=== PATIENT | male | born 1950 | race African-American/Black ===

== ENCOUNTER → 2021-02-27 | Outpatient (CLI) | payer MEDICARE ==
[2020-05-19 11:01] VITALS: BP 180/95
[~2021-02-27] MED LIST: ALBU2.5V8 IH; AMLO-187 PO; AMLO2.5T2 PO; ASPI-630 PO; BUDE10.2 IH; CONTRAST GIVEN. MC PRN; FLUT9.9S NS; HYDR12.58 PO; IOHEXOL 300 MG/ML 100ML VIAL. IV ONE; LOVA20TA2 PO; LOVA40TA2 PO; METF500T16 PO; METH-38 PO; SITA100T PO; SITA50TA PO; VALS320T2 PO
[2021-02-27 10:42] LABS: CREATININE 1.5 mg/dL (0.7-1.3); GFR 56.3
--- NOTE | 2021-02-28 08:55 | RAD ---
CT scan of the abdomen and pelvis without and with contrast (CT urogram protocol) 02/27/2021 CLINICAL HISTORY: Microscopic hematuria. TECHNIQUE: Unenhanced contiguous, 2 mm axial sections were obtained through the abdomen and pelvis. A fter the intravenous administration of 65 cc of Omnipaque 300 using a split bolus and 10 minute delay , contiguous, 0.625 mm axial sections were obtained through the abdomen and pelvis. 2 mm reconstructe d axial and 3 mm sagittal and coronal reconstructed images were obtained. One or more of the following individualized dose reduction techniques were utilized for this study: 1. Automated exposure control. 2. Adjustment of the mA and/or kV according to patient size. 3. Use of iterative reconstruction technique. FINDINGS: Images through the lung bases demonstrate minimal dependent subsegmental atelectasis involv ing both lower lobes. Linear bands of subsegmental atelectasis are seen within the left lower lobe. The unenhanced CT images demonstrate no renal, ureteral or bladder calculus. On the postcontrast images the liver, spleen, pancreas and adrenal glands are within normal limits. Rounded low-attenuation lesions are seen involving both kidneys, left greater than right. These measu re 5 mm to 3.1 cm in size. They likely represent cysts. No further imaging evaluation is recommended. There is no evidence of obstruction or duplication of either collecting system. The course of both u reters is within normal limits. Atherosclerotic calcification of the abdominal aorta and its branches is seen. The abdominal aorta ta pers normally. Small calcified gallstones are seen within the gallbladder. No free fluid or free air is seen within the abdomen. There is no evidence of bowel obstruction. No retroperitoneal lymphadenop athy is seen. Images through the pelvis demonstrate the prostate gland to be enlarged likely related to BPH. It mary kay sures 6.7 x 6.4 x 6.1 cm in transverse, AP and craniocaudal dimensions. The seminal vesicles are prom inent bilaterally. No focal abnormality is seen. The urinary bladder is contracted with a diffusely t hickened wall which likely reflects hypertrophy related to bladder outlet obstruction. Calcifications are seen within the pelvis consistent with phleboliths. A prominent lymph node is seen near the left pelvic sidewall. It measures 2 cm in greatest diameter. Scattered diverticula are seen involving the sigmoid colon. No inflammatory changes are seen within the adjacent fat. No free fluid is noted. Very mild S-shaped curvature of the thoracolumbar spine is seen. Degenerative changes are seen involv ing the lower thoracic and throughout the lumbar spine along with both hips. IMPRESSION: The prostate gland is enlarged which likely reflects BPH. Diffuse wall thickening of the urinary bladder is seen consistent with hypertrophy likely related to bladder outlet obstruction. No acute abnormality is seen. Electronically signed by: Rom Tomas MD (02/28/2021 8:53 AM) [id number]
== END ==
LOC: CT 10:20
PROVIDERS: ATTEND Urology
DX: N40.0 Benign prostatic hyperplasia without lower urinary tract symptoms (principal); R31.9 Hematuria, unspecified; M43.8X5 Other specified deforming dorsopathies, thoracolumbar region; M47.815 Spondylosis without myelopathy or radiculopathy, thoracolumbar region; M16.0 Bilateral primary osteoarthritis of hip
CPT/HCPCS: 36415; 74178; 82565; Q9967